=== PATIENT | female | born 1960 | race Caucasian/White ===

== ENCOUNTER 2025-07-15 14:47 | Day surgery (SDC) | payer MEDICARE ==
[2025-07-15] MEDS ORDERED: methylPREDNISolone acetate IM ONE (14:48)
[2025-07-15] MEDS ORDERED: BUPIVACAINE 0.5% VIAL IJ ONE (14:48)
[2025-07-15] MEDS ORDERED: propofoL IV ONE (17:08)
[2025-07-15] MEDS ORDERED: Lactated Ringers 1,000 ML IV ONE (17:55)
--- NOTE | 2025-07-15 19:09 | XRAY ---
Indication: Left T7-T9 intercostal nerve block. Intraoperative fluoroscopy provided for 16 seconds. 3 digital spot image submitted for interpretation demonstrates 3 needle tips projecting lateral to unknown left lower ribs. Correlate with intraoperative findings/report. Incidental incompletely visualized left abdominal pain pump.
--- NOTE | 2025-07-16 10:15 | XRAY ---
16 seconds of fluoroscopy used in surgery for a left T7-T9 intercostal nerve block.
== END 2025-07-15 17:39 | disposition home or self-care (01) ==
LOC: SDC-PAIN 14:47
PROVIDERS: ATTEND Psychiatry & Neurology Pain Medicine
DX: R07.81 Pleurodynia (principal)